=== PATIENT | male | born 1975 | race Caucasian/White ===

== ENCOUNTER 2024-04-11 09:47 | Outpatient (AMB) | payer OTHER, SELFPAY ==
--- NOTE | 2024-04-11 10:01 | A.OFFPC_ITS ---
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 Intake Note: Patient states he hasnt had a PCP for a while and hasnt been seen and just wants to get checked. 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 HPI Details New Patient? ?? Prior PCP:? No pcp x 10 yrs Last office visit/CPE:? 10 yrs Acute issue(s):? Est Care Skin lesions on head & shoulders ?? PMHx:? SurgHx:? R ing hernia repair. L skin polyp on torso. FHx:? Mom: COPD, HTN, HLD. Dad: unknown. Brother EtoH. Aunt Colon CA. 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 Smokes 1/2 ppd, EtOH 3-4 dr 3x a week. PFSH Medical History (Updated 04/11/24 @ 11:33 by Good Peterson) No pertinent past medical history Surgical History (Updated 04/11/24 @ 10:11 by CYNTHIA Ndiaye) H/O hernia repair Family History (Updated 04/11/24 @ 10:13 by CYNTHIA Ndiaye) Mother High blood pressure High cholesterol Maternal Grandmother Lung cancer Social History (Updated 04/11/24 @ 10:16 by CYNTHIA Ndiaye) Household Members: Family Caregiver staying overnight: No Housing: Apartment Are you a primary field care coordinator to a significant other at home: No Do you presently have visiting nurse or other home services: No 75 years or older and lives alone: No Alcohol intake: current Patient Tobacco Use Status: Current everyday Tobacco user Tobacco use type: Cigarette Cigarette Packs Per Day: 0.5 Cigarettes Per Day: 10 Years Smoked: 20 e-Cigarette/Vaping Use: Never Used service: No Current occupational status: employed 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 1. Little interest or pleasure in doing things: not at all 2. Feeling down, depressed, or hopeless: not at all 3. Trouble falling or staying asleep, or sleeping too much: not at all 4. Feeling tired or having little energy: not at all 5. Poor appetite or overeating: not at all 6. Feeling bad about yourself - or that you are a failure or have let yourself or your family down: not at all 7. Trouble concentrating on things, such as reading the newspaper or watching television: not at all 8. Moving or speaking so slowly that other people could have noticed. Or the opposite - being so fidgety or restless that you have been moving around a lot more than usual: not at all 9. Thoughts that you would be better off or of hurting yourself in some way: not at all Total score: 0 Depression Screening Interpretation: Negative Depression Screening Done: Yes 56079 - PHQ-9 Billing: Yes Source: Developed by Drs. Waqar Clark, Cristin Garland, Seb Carpenter and colleagues, with an educational denise from [email or web address]. Thrive Questionnaire Date Thrive assessed: 04/11/24 I am a: Patient What is your living situation today?: I have a steady place to live Within the past 12 months, did the food you bought not last and you didn't have the money to get more?: Never true Within the past 12 months, did you worry whether your food would run out before you got money to buy more?: Never true Do you have trouble paying for medicines?: No Do you have trouble getting transportation to medical appointments?: No Do you have trouble paying your heating and electricity bill?: No Do you have trouble taking care of your child, family member or friend?: No Do you have trouble with day-to-day activities such as bathing, preparing meals, shopping, managing finances, etc.?: No Are you currently unemployed and looking for a job?: No Are you interested in more education?: Yes Please select the resources that you would like help with: Education Currently or been in a relationship where the following occur: No concerns reported THRIVE Score: 0 AUDIT C Alcohol Use Questionnaire (AUDIT-C) 1. How often do you have a drink containing alcohol?: 2-3 times a week 2. How many drinks containing alcohol do you have on a typical day when you are drinking?: 3 or 4 Total Score: 4 MARIA ISABEL-7 AMB Questionnaire MARIA ISABEL-7 Date MARIA ISABEL - 7 assessed: 04/11/24 Feeling nervous, anxious, or on edge: 0 = Not at all Not being able to stop or control worryin = Not at all Worrying too much about different things: 0 = Not at all Trouble relaxin = Not at all Being so restless that it is hard to sit still: 0 = Not at all Becoming easily annoyed or irritable: 0 = Not at all Feeling afraid as if something awful might happen: 0 = Not at all Total MARIA ISABEL-7 score (0-4 normal; 5-9 mild; 10-14 moderate; 15-21 severe): 0 Source: Developed by Drs. Waqar Clark, Cristin Garland, Seb Carpenter and colleagues, with an educational denise from [email or web address]. MARIA ISABEL-7 Assessment Billing MARIA ISABEL-7 Assessment Tool: MARIA ISABEL-7 Assessment 11185 Review of Systems Const Denies chills, Denies fatigue, Denies fever(s), Denies headache(s) and Denies weakness Eyes Denies change in vision ENT Denies dizziness and Denies headache(s) Card Denies chest pain, Denies lightheadedness, Denies dyspnea and Denies other (Palpitations) Resp Denies cough, Denies dyspnea, Denies wheezing and Denies other ( shortness of breath) GI Denies abdominal pain, Denies melena, Denies hematochezia, Denies change in bowel habits, Denies dyspepsia and Denies nausea Denies hematuria and Denies dysuria Musc Denies numbness and Denies tingling Skin/Breast Denies rash, Denies unusual bruising and Denies wounds Neuro Denies dizziness, Denies headache(s), Denies numbness, Denies Sensory deficit (Neuro), Denies tingling, Denies paresthesias and Denies weakness Psych Denies anxiety and Denies depression Endo Denies fatigue Shin/Lymph Denies easy bleeding and Denies easy bruising Aller/Immun Denies wheezing Physical exam (Primary Care) Vital Signs: Last Vital Signs Temp 97.5 F 04/11/24 10:02 Pulse 88 04/11/24 10:02 Resp 15 04/11/24 10:02 BP 126/84 04/11/24 10:02 Pulse Ox 96 04/11/24 10:02 Oxygen Delivery Method Room Air 04/11/24 10:02 BMI result Body Mass Index 29.8 Tobacco/Smoking Status: Tobacco use Status Tobacco use date assessed 04/11/24 04/11/24 10:16 Patient Tobacco Use Status Current everyday Tobacco 04/11/24 10:16 Tobacco use type Cigarette 04/11/24 10:16 e-Cigarette/Vaping Use Never Used 04/11/24 10:16 PHQ-9: PHQ-9 Score PHQ-9: Total score 0 04/11/24 10:16 Depression Screening Interpretation: Negative Thrive Assessment: Date of Thrive Assessment Date Thrive assessed 04/11/24 04/11/24 10:16 Currently or been in a relationship where the following occur: No concerns reported Const General: no acute distress and well developed Nutritional Appearance: well nourished Orientation/consciousness: patient oriented x3 HENMT Head: Yes normocephalic and Yes atraumatic Ears: hearing grossly normal bilaterally and TM's normal bilaterally General nose exam: Normal external nose present and Normal nares present Mouth: Normal oral and palatal mucosa present and moist mucous membranes Teeth and gingiva: dentition normal Throat: Yes posterior oropharynx normal Eyes General: appearance normal, both eyes and all related structures Pupils: Equal, round and reactive pupils present EOM: EOMs intact bilaterally Neck Neck: Yes normal visual inspection, Yes no lymphadenopathy and Yes trachea midline Thyroid: Thyroid normal Carotids: no bruits Lymphatic: no lymphadenopathy noted Chest Chest palpation & inspection: normal inspection of the chest Resp Effort & Inspection: normal respiratory effort Auscultation: clear to auscultation bilaterally Cardio Rate: regular rate Rhythm: regular rhythm Heart sounds: S1 normal heart sound present, S2 normal heart sound present, no gallops, no murmurs and no rubs Bruits: no abdominal aortic bruits and no carotid bruits GI Palpation (GI): No Abdominal aortic bruit present, Soft to palpation, nontender, No hepatosplenomegaly present and No Rebound tenderness present Auscultation: normal bowel sounds General: Yes no CVA tenderness Back/Spine/Pelvis Back: no CVA tenderness Cervical Spine: cervical ROM normal and No Cervical spine tenderness Thoracic/Lumbar Spine: thoraco-lumbar ROM normal, No pain with thoraco-lumbar ROM, No thoracic spinal tenderness and No lumbar spinal tenderness Skin Lesions: no lesions Rashes: no rashes Trauma: no lacerations or abrasions Wounds: no wounds Nails: normal Neuro General: patient oriented x3 and gait normal Cranial nerves: Yes Equal, round and reactive pupils present Cognition (Neuro): normal cognition Gait exam (Neuro): Normal gait present Motor exam (neuro): 5/5 motor strength present throughout Sensory Exam: No Sensory deficit (Neuro) Deep tendon reflexes (DTR's): Right patellar reflex intensity grade: 2+ and Left patellar reflex intensity grade: 2+ Extrem General: Yes normal to inspection and No edema Psych Appearance: grossly normal Affect: normal affect Attitude: cooperative Thought process: Normal thought process present Assessment and Plan Assessment & Plan (1) Adult general medical exam: Code(s): Z00.00 - Encounter for general adult medical examination without abnormal findings Plan: 48-year-old?male?presents?as?new?patient?for?complete?physical?exam Exam?within?normal?limits (2) Smoker: Code(s): F17.200 - Nicotine dependence, unspecified, uncomplicated Plan: Patient?is?smoking?1/2?pack?per?day.??Strong?family?history?of?lung?cancer?and?C OPD Reviewed?options?for?smoking?cessation?and?patient?would?like?to?try?bupropion Script?sent Will?also?check?chest?x-ray (3) Neoplasm of uncertain behavior of skin: Code(s): D48.5 - Neoplasm of uncertain behavior of skin Plan: Lesion?on?forehead?and?others?on?face?and?shoulder Referred?to?dermatology (4) Screening for colon cancer: Code(s): Z12.11 - Encounter for screening for malignant neoplasm of colon Plan: 48?years?old.??Due?for?colon?cancer?screening Referred?to?Gastroenterology Orders: Orders Lipid Panel Today Z00.00 - Encounter for general adult medical examination without abnormal findings Microalbumin, Random (w Creat) Today I10 - Essential (primary) hypertension Prostate Specific Antigen Scr Today Z12.5 - Encounter for screening for malignant neoplasm of prostate TSH reflex Free T4 Today Z00.00 - Encounter for general adult medical examination without abnormal findings UA and rflx microscopic Today Z00.00 - Encounter for general adult medical examination without abnormal findings XR chest 2V Today F17.200 - Nicotine dependence, unspecified, uncomplicated Comprehensive [place]. Panel Fast Today Z00.00 - Encounter for general adult medical examination without abnormal findings Referrals Dermatology Referral D48.5 - Neoplasm of uncertain behavior of skin Gastroenterology Referral Z12.11 - Encounter for screening for malignant neoplasm of colon Medications: New bupropion HCl 75 mg PO BID 30 days 60 tabs 1RF Z12.11 - Encounter for screening for malignant neoplasm of colon Coding Level of Care Code New Pt Level 3 (75729) Diagnoses Adult general medical exam Z00.00 Smoker F17.200 Neoplasm of uncertain behavior of skin D48.5 Screening for colon cancer Z12.11 Additional Codes MARIA ISABEL-7 Assessment Billing - MARIA ISABEL-7 Assessment Tool: MARIA ISABEL-7 Assessment 03207 ([id number])
[2024-04-11 10:02] VITALS: BP 126/84; PULSE 88; RESP 15; TEMP 36.4; O2SAT 96; BMI 29.8
== END 2024-04-11 11:41 | disposition home or self-care (01) ==
PROVIDERS: PCP Family Medicine; Visit Provider Family Medicine
DX: Z00.00 Encounter for general adult medical examination without abnormal findings (principal); D48.5 Neoplasm of uncertain behavior of skin; F17.210 Nicotine dependence, cigarettes, uncomplicated; Z12.11 Encounter for screening for malignant neoplasm of colon
CPT/HCPCS: 99203; 99386

== ENCOUNTER 2024-04-20 08:55 | Outpatient (REF) | payer OTHER, SELFPAY ==
[2024-04-20 11:50] LABS: Appearance Urine Turbid; Color Urine Dark Yellow; Glucose Urine UA Negative (Negative); Leukocyte Esterase Urine Negative (Negative); Nitrite Urine Negative (Negative); PH 5.5 (5.0-9.0); Urine Blood Negative (Negative); Urine Ketones Negative (Negative); Urine Protein Negative (Neg-Trace)
[2024-04-20 12:05] LABS: Prostate Specific Antigen Scr 0.56 ng/mL (<0.05-4.0)
[2024-04-20 12:13] LABS: Alanine Aminotransferase 74 U/L (0-40); Albumin Level 4.4 g/dL (3.5-5.0); Alkaline Phosphatase 80 U/L (39-117); Anion Gap 14 (12-20); Aspartate Amino Transferase 48 U/L (5-37); Bilirubin Total 0.6 mg/dL (0.0-1.0); Blood Urea Nitrogen 8 mg/dL (9-16); Calcium 8.8 mg/dL (8.4-10.2); Carbon Dioxide 21 mmol/L (22-29); Chloride 109 mmol/L (96-108); Cholesterol 207 mg/dL (<200); Estimated Glomerular Filt Rate > 60; Glucose Fasting 90 mg/dL (60-99); HDL Cholesterol 47 mg/dL (>40); LDL Cholesterol Calculated 102 mg/dL (<100); Potassium 3.9 mmol/L (3.3-5.1); Sodium 140 mmol/L (135-145); TSH reflex Free T4 2.18 uIU/mL (0.32-4.0); Total Protein 7.1 g/dL (6.5-8.0); Triglycerides 291 mg/dL (<150)
[2024-04-20 12:17] LABS: Creatinine Urine 268.36 mg/dL; Microalbum/Creatinine Ratio Ur 6.3 ug/mg cr (<30)
== END 2024-04-20 08:56 | disposition home or self-care (01) ==
LOC: HO.WFDLDS 08:55
PROVIDERS: Visit Provider Family Medicine
DX: Z00.00 Encounter for general adult medical examination without abnormal findings (principal); I10 Essential (primary) hypertension; Z12.5 Encounter for screening for malignant neoplasm of prostate
CPT/HCPCS: 36415; 80053; 80061; 81003; 82043; 82570; 84153; 84443

== ENCOUNTER → 2024-05-04 16:01 | Outpatient (AMB) | payer OTHER, SELFPAY ==
--- NOTE | 2024-05-04 15:58 | A.OFFPC_ITS ---
Intake Visit Reasons: f/u CPE-labs via telemedicine Intake Note: follow on CPE labs Allergies No Known Allergies Allergy (Verified 05/04/24 15:59) Tobacco use date assessed: 04/11/24 Dental Screening Dental Screen Date: 04/11/24 HPI f/u CPE-labs via telemedicine HPI Details 48 y/o male presents to f/u CPE-labs via telemedicine. Labs drawn 04/20/24. Reviewed labs with pt. Elevated liver enzymes - AST 48 and ALT 78. Triglycerides 291. TC 207. LDL 102. HDL 47. PFSH Medical History (Updated 05/04/24 @ 16:32 by Good Peterson) No pertinent past medical history Surgical History (Updated 04/11/24 @ 10:11 by CYNTHIA Ndiaye) H/O hernia repair Family History (Updated 04/11/24 @ 10:13 by CYNTHIA Ndiaye) Mother High blood pressure High cholesterol Maternal Grandmother Lung cancer Social History (Updated 04/11/24 @ 10:16 by CYNTHIA Ndiaye) Household Members: Family Caregiver staying overnight: No Housing: Apartment Are you a primary family day care worker to a significant other at home: No Do you presently have visiting nurse or other home services: No 75 years or older and lives alone: No Alcohol intake: current Patient Tobacco Use Status: Current everyday Tobacco user Tobacco use type: Cigarette Cigarette Packs Per Day: 0.5 Cigarettes Per Day: 10 Years Smoked: 20 Packs Per Year: 10 Packs per year/per ci.00 e-Cigarette/Vaping Use: Never Used service: No Current occupational status: employed 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 Waqar Clark, Cristin Garland, Seb Carpenter and colleagues, with an educational denise from [employer]. Review of Systems Const Denies chills, Denies fatigue, Denies fever(s), Denies headache(s) and Denies weakness ENT Denies dizziness and Denies headache(s) Card Denies dyspnea Resp Denies cough, Denies dyspnea, Denies wheezing and Denies other (shortness of breath) Musc Denies numbness and Denies tingling Neuro Denies dizziness, Denies headache(s), Denies numbness, Denies tingling and Denies weakness Psych Denies anxiety and Denies depression Endo Denies fatigue Aller/Immun Denies wheezing Physical exam (Primary Care) Tobacco/Smoking Status: Tobacco use Status Tobacco use date assessed 04/11/24 05/04/24 16:01 Patient Tobacco Use Status Current everyday Tobacco 05/04/24 16:01 Tobacco use type Cigarette 05/04/24 16:01 e-Cigarette/Vaping Use Never Used 05/04/24 16:01 Thrive Assessment: Date of Thrive Assessment Date Thrive assessed 04/11/24 05/04/24 16:01 Const General: well developed; No acute distress Nutritional Appearance: well nourished Orientation/consciousness: patient oriented x3 HENMT Head: Yes normocephalic and Yes atraumatic Eyes General: appearance normal, both eyes and all related structures Pupils: Equal, round and reactive pupils present EOM: EOMs intact bilaterally Resp Effort & Inspection: normal respiratory effort Neuro General: patient oriented x3 and gait normal Cranial nerves: Yes Equal, round and reactive pupils present Psych Affect: normal affect Telehealth Telehealth Telehealth Platform: Telephone Location of provider rendering services: practice address Location of patient: address on file Patient Identification confirmed using: Name, : Yes Telehealth method: voice only Patient verbally consented to treatment: Yes Patient verbally consented to billing insurance company: Yes Patient informed of any privacy concerns related to visit: Yes Minutes spent on Phone/Video with Pt.: 9 Assessment and Plan Assessment & Plan (1) Elevated liver enzymes: Code(s): R74.8 - Abnormal levels of other serum enzymes Plan: Elevated?liver?enzyme Patient?notes?that?he?does?drink?alcohol?regularly He?will?work?on?weaning?this?down Hydrate?well Encouraged?weight?loss Will?repeat?liver?enzymes?in?3?months (2) Hypertriglyceridemia: Code(s): E78.1 - Pure hyperglyceridemia Plan: Mildly?elevated?cholesterol?levels?and?elevated?triglycerides Work?on?weight?loss Watch?saturated?fats?and?cholesterol Will?recheck?with?next?lab?draw (3) Screening for prostate cancer: Code(s): Z12.5 - Encounter for screening for malignant neoplasm of prostate Plan: PSA?was?within?normal?range (4) Smoker: Code(s): F17.200 - Nicotine dependence, unspecified, uncomplicated Plan: Yet?had?discussed?cessation?with?patient?at?last?visit?and?he?was?interested?in? quitting.??He?has?not?quit?yet.??Still?thinking?about?it?though. Had?ordered?bupropion?to?try?to?help?him?quit?and?he?has?not?tried?this?yet.??Di scussed?risks/benefits?again?and?patient?seems?more?inclined?to?try?it. Had?ordered?chest?x-ray?and?he?will?try?to?get?this?done We?can?follow-up?at?a?subsequent?visit Coding Level of Care Code Tele Est Pt Level 2 (07822) Diagnoses Elevated liver enzymes R74.8 Hypertriglyceridemia E78.1 Screening for prostate cancer Z12.5 Smoker F17.200
== END ==
LOC: HO.HMGFM 16:01
PROVIDERS: PCP Family Medicine; Visit Provider Family Medicine
DX: R74.8 Abnormal levels of other serum enzymes (principal); E78.1 Pure hyperglyceridemia; Z12.5 Encounter for screening for malignant neoplasm of prostate; F17.200 Nicotine dependence, unspecified, uncomplicated
CPT/HCPCS: 99212

== ENCOUNTER 2024-05-26 13:54 | Outpatient (REF) | payer OTHER, SELFPAY ==
--- NOTE | ~2024-05-26 | XR_ITS ---
EXAMINATION: XR CHEST CLINICAL INFORMATION: Nicotine dependence COMPARISON: None available. TECHNIQUE: 2 views of the chest were obtained. FINDINGS: Cardiac and mediastinal silhouette is within normal limits. There is a peribronchial thickening in the perihilar region and bilateral lower lungs. This may represent inflammatory/infectious process. No dense consolidation. No effusion, edema or pneumothorax. Thoracic spine degeneration. XR/XR chest 2V IMPRESSION: Peribronchial thickening suggestive of reactive airway disease or bronchitis. Recommendation is for a follow-up chest series to be obtained following treatment and/or resolution of symptoms to assure resolution of this appearance. Electronically signed by: Parag Devries MD 05/26/2024 05:13 PM EDT
== END 2024-05-26 13:55 | disposition home or self-care (01) ==
LOC: HO.XRAY 13:54
PROVIDERS: PCP Family Medicine; Visit Provider Family Medicine
DX: F17.200 Nicotine dependence, unspecified, uncomplicated (principal)
CPT/HCPCS: 71046

== ENCOUNTER 2024-07-31 09:09 | Outpatient (REF) | payer OTHER, SELFPAY ==
[2024-07-31 12:46] LABS: Alanine Aminotransferase 80 U/L (0-40); Albumin Level 4.6 g/dL (3.5-5.0); Alkaline Phosphatase 92 U/L (39-117); Anion Gap 15 (12-20); Aspartate Amino Transferase 60 U/L (5-37); Bilirubin Total 0.9 mg/dL (0.0-1.0); Blood Urea Nitrogen 11 mg/dL (9-16); Calcium 9.9 mg/dL (8.4-10.2); Carbon Dioxide 25 mmol/L (22-29); Chloride 105 mmol/L (96-108); Cholesterol 216 mg/dL (<200); Estimated Glomerular Filt Rate > 60; Glucose Fasting 94 mg/dL (60-99); HDL Cholesterol 49 mg/dL (>40); LDL Cholesterol Calculated 110 mg/dL (<100); Potassium 3.9 mmol/L (3.3-5.1); Sodium 141 mmol/L (135-145); Total Protein 7.5 g/dL (6.5-8.0); Triglycerides 288 mg/dL (<150)
== END 2024-07-31 09:10 | disposition home or self-care (01) ==
LOC: HO.WFDLDS 09:09
PROVIDERS: Visit Provider Family Medicine
DX: Z00.00 Encounter for general adult medical examination without abnormal findings (principal); E78.1 Pure hyperglyceridemia; R74.8 Abnormal levels of other serum enzymes
CPT/HCPCS: 36415; 80053; 80061

== ENCOUNTER 2024-08-07 09:44 | Outpatient (AMB) | payer OTHER, SELFPAY ==
--- NOTE | 2024-08-07 09:49 | A.OFFPC_ITS ---
Vital Signs 08/07/24 09:50 Height 5 ft 8 in Weight 201 lb BMI 30.6 BP 130/80 Blood Pressure Location Rt brachial Position Sitting Respiration 16 Pulse 95 Pulse Source Pulse Oximeter Temp 98.6 F Temp Source Oral Pulse Oximetry (%) 95 Oxygen Delivery Method Room Air Intake Visit Reasons: F/U elevated liver enzymes and triglycerides. Intake Note: f/u for labs Allergies No Known Allergies Allergy (Verified 08/07/24 09:49) Tobacco use date assessed: 04/11/24 Dental Screening Dental Screen Date: 04/11/24 HPI F/U elevated liver enzymes and triglycerides. HPI Details Patient is a 49-year-old male with a significant past medical history of hypertriglyceridemia, elevated LFTs, regular alcohol use and smoking presenting today for a follow up. His last labs have been stable with elevated LFTs and triglycerides. He was supposed to follow up today to review a plan for this. He tells me that when he last saw his PCP he was instructed to cut back on drinking and eat healthier. He states that he has not done this yet but wants to make some lifestyle modifications because he really does not want to take medication. He states since it is summertime he has even gained a few lb. He would like the opportunity to make more changes and does not need or want to see a extraction machine operator. He has not yet started the bupropion for smoking cessation. He states that he is getting ready to make these changes. [facility] Medical History (Updated 05/29/24 @ 22:57 by Jerman Mcallister MD) No pertinent past medical history Surgical History (Updated 04/11/24 @ 10:11 by CYNTHIA Ndiaye) H/O hernia repair Family History (Updated 04/11/24 @ 10:13 by CYNTHIA Ndiaye) Mother High blood pressure High cholesterol Maternal Grandmother Lung cancer Social History (Updated 04/11/24 @ 10:16 by CYNTHIA Ndiaye) Household Members: Family Caregiver staying overnight: No Housing: Apartment Are you a primary pet care technician to a significant other at home: No Do you presently have visiting nurse or other home services: No 75 years or older and lives alone: No Alcohol intake: current Patient Tobacco Use Status: Current everyday Tobacco user Tobacco use type: Cigarette Cigarette Packs Per Day: 0.5 Cigarettes Per Day: 10 Years Smoked: 20 e-Cigarette/Vaping Use: Never Used service: No Current occupational status: employed 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 1. Little interest or pleasure in doing things: not at all 2. Feeling down, depressed, or hopeless: not at all 3. Trouble falling or staying asleep, or sleeping too much: not at all 4. Feeling tired or having little energy: not at all 5. Poor appetite or overeating: not at all 6. Feeling bad about yourself - or that you are a failure or have let yourself or your family down: not at all 7. Trouble concentrating on things, such as reading the newspaper or watching television: not at all 8. Moving or speaking so slowly that other people could have noticed. Or the opposite - being so fidgety or restless that you have been moving around a lot more than usual: not at all 9. Thoughts that you would be better off or of hurting yourself in some way: not at all Total score: 0 Source: Developed by Drs. Waqar Clark, Cristin Garland, Seb Carpenter and colleagues, with an educational denise from [employer]. Thrive Questionnaire Date Thrive assessed: 08/04/24 I am a: Patient What is your living situation today?: I have a steady place to live Within the past 12 months, did the food you bought not last and you didn't have the money to get more?: Never true Within the past 12 months, did you worry whether your food would run out before you got money to buy more?: Never true Do you have trouble paying for medicines?: No Do you have trouble getting transportation to medical appointments?: No Do you have trouble paying your heating and electricity bill?: No Do you have trouble taking care of your child, family member or friend?: No Do you have trouble with day-to-day activities such as bathing, preparing meals, shopping, managing finances, etc.?: No Are you currently unemployed and looking for a job?: No Are you interested in more education?: No Please select the resources that you would like help with: None Currently or been in a relationship where the following occur: No concerns reported THRIVE Score: 0 MARIA ISABEL-7 AMB Questionnaire MARIA ISABEL-7 Date MARIA ISABEL - 7 assessed: 04/11/24 Source: Developed by Drs. Waqar Clark, Cristin Garland, Seb Carpenter and colleagues, with an educational denise from [employer]. Physical exam (Primary Care) Vital Signs: Last Vital Signs Temp 98.6 F 08/07/24 09:50 Pulse 95 08/07/24 09:50 Resp 16 08/07/24 09:50 BP 130/80 08/07/24 09:50 Pulse Ox 95 08/07/24 09:50 Oxygen Delivery Method Room Air 08/07/24 09:50 BMI result Body Mass Index 30.6 Tobacco/Smoking Status: Tobacco use Status Tobacco use date assessed 04/11/24 08/07/24 09:53 Patient Tobacco Use Status Current everyday Tobacco 08/07/24 09:53 Tobacco use type Cigarette 08/07/24 09:53 e-Cigarette/Vaping Use Never Used 08/07/24 09:53 PHQ-9: PHQ-9 Score PHQ-9: Total score 0 08/07/24 09:55 Thrive Assessment: Date of Thrive Assessment Date Thrive assessed 08/04/24 08/07/24 09:53 Currently or been in a relationship where the following occur: No concerns reported Const Orientation/consciousness: patient oriented x3 HENMT Ears: hearing grossly normal bilaterally Neck Thyroid: Thyroid normal Lymphatic: no lymphadenopathy noted Resp Auscultation: clear to auscultation bilaterally Cardio Rate: regular rate Rhythm: regular rhythm Heart sounds: S1 normal heart sound present and S2 normal heart sound present GI Inspection: Yes normal to inspection Palpation (GI): Soft to palpation and Other GI palpation findings present (nontender, no cva tenderness) Auscultation: normoactive bowel sounds Rectal Exam - Male: Yes deferred Skin General skin exam: no rashes or lesions noted Neuro General: patient oriented x3, gait normal and no focal motor deficits Results Reviewed Results Reviewed: Laboratory Tests 04/20/24 07/31/24 08:57 09:10 Sodium 141 Potassium 3.9 Chloride 105 Carbon Dioxide 25 Anion Gap 15 BUN 11 Creatinine 0.85 Estimated GFR > 60 Fasting Glucose 94 Calcium 9.9 D Total Bilirubin 0.9 AST 48 H 60 H ALT 74 H 80 H Triglycerides 288 H Cholesterol 216 H LDL Cholesterol, Calc 110 H HDL Cholesterol 49 Coding Level of Care Code Est Pt Level 4 (84529) Complex EM visit Add On G2211 Diagnoses Elevated liver enzymes R74.8 Hypertriglyceridemia E78.1 Assessment & Plan Assessment & Plan (1) Elevated liver enzymes: Code(s): R74.8 - Abnormal levels of other serum enzymes Category: Medical Plan: Advised that he needs to make some significant changes in cut back drinking, avoid processed foods and limit fast food and fried food. He declined seeing a extraction machine operator. He states that he is going to stop eating egg and sausage sandwich is every morning and cut back on his alcohol. He states that he has a plan of making healthy lifestyle modifications. We will recheck labs in 3-4 months. Liver ultrasound ordered. We will follow up pending test results. (2) Hypertriglyceridemia: Code(s): E78.1 - Pure hyperglyceridemia Category: Medical Plan: As above. Plan Declines flu shot today. Orders: Orders Liver Panel Today E78.1 - Pure hyperglyceridemia, R74.8 - Abnormal levels of other serum enzymes US abdomen complete Today E78.1 - Pure hyperglyceridemia, R74.8 - Abnormal levels of other serum enzymes Lipid Panel Today E78.1 - Pure hyperglyceridemia, R74.8 - Abnormal levels of other serum enzymes
[2024-08-07 09:50] VITALS: BP 130/80; PULSE 95; RESP 16; TEMP 37; O2SAT 95; BMI 30.6
== END 2024-08-07 10:04 | disposition home or self-care (01) ==
PROVIDERS: PCP Family Medicine; Visit Provider Physician Assistant
DX: R74.8 Abnormal levels of other serum enzymes (principal); E78.1 Pure hyperglyceridemia

== ENCOUNTER 2024-08-21 07:51 | Outpatient (REF) | payer OTHER, SELFPAY | END 2024-08-21 07:52 | disposition home or self-care (01) | LOC: HO.US 07:51 | PROVIDERS: PCP Family Medicine; Visit Provider Physician Assistant | DX: R74.8 Abnormal levels of other serum enzymes (principal); E78.1 Pure hyperglyceridemia | CPT/HCPCS: 76700 ==

== ENCOUNTER 2025-01-17 08:23 | Outpatient (AMB) | payer OTHER, SELFPAY ==
--- NOTE | 2025-01-17 08:25 | A.OFFVIS_ITS ---
Vital Signs 01/17/25 08:26 Height 5 ft 8 in Weight 202 lb BMI 30.7 BP 118/76 Blood Pressure Location Rt brachial Position Sitting Pulse 100 Pulse Source Pulse Oximeter Pulse Oximetry (%) 98 Oxygen Delivery Method Room Air Intake Visit Reasons: [place] scrn. R/S x1 Intake Note: NEW PATIENT for colo screening w/ hx of abn LFTs. Chief Complaint; Pt denies any GI sx or concerns at this time. Pt has hx of internal hemorrhoids + hematemesis related to severe EToH dependence. No pertinent FMHx. Loaf Counter Required: No Accompanied by: Self / Same As Patient Allergies No Known Allergies Allergy (Verified 01/17/25 08:26) HPI HPI [place] scrn. R/S x1: Details: 49 year old? male is here today for pre colonoscopy screening.? Patient was sent to us by his PCP.? His 1st colonoscopy was in his 20s for rectal bleed. Patient was diagnosed with internal hemorrhoids. Maternal aunt was diagnosed with colorectal cancer in her 30s. ? Patient denies any gastrointestinal symptoms.?? Denies history of difficulty with sedation or anesthesia in the past.? Negative for history of sleep apnea.? Denies any history of cardiac, renal, pulmonary, or hepatic disease.?? No history of infectious? diseases like hepatitis A, B, C, HIV or tuberculosis.? Patient is not on any anticoagulation [facility] Medical History No pertinent past medical history Surgical History H/O hernia repair Family History Mother High blood pressure High cholesterol Maternal Grandmother Lung cancer Social History Household Members: Family Caregiver staying overnight: No Housing: Apartment Are you a primary career development associate to a significant other at home: No Do you presently have visiting nurse or other home services: No 75 years or older and lives alone: No Alcohol intake: current Comment: 3 sleeves per week depending on when he plays golf. 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 Cognitive needs: No Hearing needs: No Vision needs: No Review of Systems Const Denies weight gain and Denies weight loss ENT Reports no additional complaints, Denies dysphagia and Denies odynophagia Card Reports no additional complaints Resp Reports no additional complaints GI Denies abdominal pain, Denies belching, Denies melena, Denies bloating, Denies change in bowel habits, Denies dysphagia, Denies excessive flatus, Denies dyspepsia, Denies heartburn, Denies diarrhea, Denies loose stools, Denies nausea, Denies odynophagia and Denies vomiting Reports no additional complaints Musc Reports no additional complaints Neuro Reports no additional complaints Psych Reports no additional complaints Endo Reports no additional complaints Physical Exam Const General: healthy appearing, no acute distress and well developed Nutritional Appearance: well nourished and obese Orientation/consciousness: patient oriented x3 Resp Effort & Inspection: normal respiratory effort, able to speak in complete sentences, no tracheal deviation and symmetric chest movement Auscultation: clear to auscultation bilaterally Cardio Rate: regular rate GI Inspection: Yes normal to inspection, No distended and Yes obesity Palpation (GI): Soft to palpation, not firm, nontender and No hepatosplenomegaly present Auscultation: normal bowel sounds General: Yes no CVA tenderness Back/Spine/Pelvis Back: no CVA tenderness Skin General skin exam: elasticity normal, turgor normal and dry skin Neuro General: patient oriented x3 Psych Appearance: grossly normal Mental Status: mental status grossly normal Assessment & Plan Assessment & Plan (1) Screening for colon cancer: Code(s): Z12.11 - Encounter for screening for malignant neoplasm of colon Category: Medical Plan Patient denies any GI, cardiac or respiratory symptoms.? Denies any issues with anesthesia in the past.? Denies any history of sleep apnea.? No history infectious diseases in the past or present.? Not on any anticoagulation therapy.? Family history of CRC.? Patient denies melena, hematochezia, unintentional weight loss or ribbon like stools.? Discussed at length the pre- procedure,? prep, diet & medications as well as what to expect prior, during and after the procedure.?? Stressed the importance of good bowel prep.? Recommended the use of Vaseline or Calmoseptine OTC & baby wipes with bowel movements to promote comfort.? ?Patient verbalizes understanding and agrees to plan of care.? He was given the opportunity to ask questions and all questions answered.? We will see him after the procedure.? Medications: New polyethylene glycol 3350 (Miralax) As directed by gastroenterology department at [facility] 238 grams PO ONCE 238 grams 0RF Z12.11 - Encounter for screening for malignant neoplasm of colon bisacodyl (Dulcolax (bisacodyl)) take 4 tabs at noon the day before your colonoscopy 20 mg (4 x 5 mg) PO ONCE 1 day 4 tabs 0RF constipation Z12.11 - Encounter for screening for malignant neoplasm of colon Coding Level of Care Code New Pt Level 3 (80632) Diagnoses Screening for colon cancer Z12.11 Time Spent (min) 40 Comment 30 minutes spent with patient and additional 10 minutes spent reviewing her records
[2025-01-17 08:26] VITALS: BP 118/76; PULSE 100; O2SAT 98; BMI 30.7
== END 2025-01-17 09:00 | disposition home or self-care (01) ==
LOC: HO.HGI 08:24
PROVIDERS: PCP Family Medicine; Visit Provider Nurse Practitioner Family
DX: Z01.818 Encounter for other preprocedural examination (principal); Z12.11 Encounter for screening for malignant neoplasm of colon; Z80.0 Family history of malignant neoplasm of digestive organs
CPT/HCPCS: 99202

== ENCOUNTER 2025-02-05 08:25 | Outpatient (AMB) | payer OTHER, SELFPAY ==
--- NOTE | 2025-02-05 08:38 | MHC.PC.OV ---
Vital Signs 02/05/25 08:39 02/05/25 08:43 Height 5 ft 8 in Weight 203 lb 6 oz BMI 30.9 BP 140/80 H 132/78 Blood Pressure Location Rt brachial Rt brachial Position Sitting Sitting Respiration 14 Pulse 95 Pulse Source Pulse Oximeter Temp 97.9 F Temp Source Oral Pulse Oximetry (%) 96 Oxygen Delivery Method Room Air Intake Visit Reasons: pcp f/u labs Intake Note: patient is scheduled for follow up lab review Remote Broadcast Technician Required: No Allergies No Known Allergies Allergy (Verified 02/05/25 08:38) Medication List - Last Reconciled 02/05/25 by Jerman Mcallister MD bisacodyl (Dulcolax (bisacodyl)) 20 mg (4 x 5 mg) PO ONCE 1 day polyethylene glycol 3350 (Miralax) 238 grams PO ONCE varenicline tartrate PO PER PKG DIR Tobacco use date assessed: 04/11/24 Dental Screening Dental Screen Date: 04/11/24 HPI pcp f/u labs HPI Details 49 y/o male presents to f/u labs. Labs drawn 07/31/24. Reviewed labs with pt. Triglycerides 288. TC 216. LDL 110. HDL 49. AST 60, ALT 80. Abdomen ultrasound 08/21/24 showed increased echogeniccity of liver parenchyma. Seen in the setting of hepatic steatosis or liver parenchymal disease. He reports ongoing smoking. Chest x-ray 05/26/24: Peribronchial thickening suggestive of reactive airway disease or bronchitis. Recommendation is for a follow-up chest series to be obtained following treatment and/or resolution of symptoms to assure resolution of this appearance. [facility] Medical History No pertinent past medical history Surgical History H/O hernia repair Family History Mother High blood pressure High cholesterol Maternal Grandmother Lung cancer Social History Household Members: Family Caregiver staying overnight: No Housing: Apartment Are you a primary child care team lead to a significant other at home: No Do you presently have visiting nurse or other home services: No 75 years or older and lives alone: No Alcohol intake: current Comment: 3 sleeves per week depending on when he plays golf. Patient Tobacco Use Status: Current everyday Tobacco user Tobacco use type: Cigarette Cigarette Packs Per Day: 0.5 Cigarettes Per Day: 10 Years Smoked: 20 e-Cigarette/Vaping Use: Never Used service: No Current occupational status: employed Current occupation: [employer] Department Cognitive needs: No Hearing needs: No Vision needs: No Questionnaire PHQ-9 Over the last 2 weeks, how often have you been bothered by any of the following problems? 1. Little interest or pleasure in doing things: not at all 2. Feeling down, depressed, or hopeless: not at all 3. Trouble falling or staying asleep, or sleeping too much: not at all 4. Feeling tired or having little energy: not at all 5. Poor appetite or overeating: not at all 6. Feeling bad about yourself - or that you are a failure or have let yourself or your family down: not at all 7. Trouble concentrating on things, such as reading the newspaper or watching television: not at all 8. Moving or speaking so slowly that other people could have noticed. Or the opposite - being so fidgety or restless that you have been moving around a lot more than usual: not at all 9. Thoughts that you would be better off or of hurting yourself in some way: not at all Total score: 0 Depression Screening Interpretation: Negative Depression Screening Done: Yes 47046 - PHQ-9 Billing: Yes Source: Developed by Drs. Waqar Clark, Cristin Garland, Seb Carpenter and colleagues, with an educational denise from [employer]. Thrive Questionnaire Date Thrive assessed: 02/02/25 I am a: Patient What is your living situation today?: I have a steady place to live Within the past 12 months, did the food you bought not last and you didn't have the money to get more?: Never true Within the past 12 months, did you worry whether your food would run out before you got money to buy more?: Never true Do you have trouble paying for medicines?: No Do you have trouble getting transportation to medical appointments?: No Do you have trouble paying your heating and electricity bill?: No Do you have trouble taking care of your child, family member or friend?: No Do you have trouble with day-to-day activities such as bathing, preparing meals, shopping, managing finances, etc.?: No Are you currently unemployed and looking for a job?: No Are you interested in more education?: No Please select the resources that you would like help with: None Currently or been in a relationship where the following occur: No concerns reported THRIVE Score: 0 AUDIT C Alcohol Use Questionnaire (AUDIT-C) 2. How many drinks containing alcohol do you have on a typical day when you are drinking?: 5 or 6 Total Score: 2 MARIA ISABEL-7 AMB Questionnaire MARIA ISABEL-7 Date MARIA ISABEL - 7 assessed: 02/05/25 Feeling nervous, anxious, or on edge: 0 = Not at all Not being able to stop or control worryin = Not at all Worrying too much about different things: 0 = Not at all Trouble relaxin = Not at all Being so restless that it is hard to sit still: 0 = Not at all Becoming easily annoyed or irritable: 0 = Not at all Feeling afraid as if something awful might happen: 0 = Not at all Total MARIA ISABEL-7 score (0-4 normal; 5-9 mild; 10-14 moderate; 15-21 severe): 0 Source: Developed by Drs. Waqar Clark, Cristin Garland, Seb Carpenter and colleagues, with an educational denise from [employer]. MARIA ISABEL-7 Assessment Billing MARIA ISABEL-7 Assessment Tool: MARIA ISABEL-7 Assessment 99737 Review of Systems Const Denies chills, Denies fatigue, Denies fever(s), Denies headache(s) and Denies weakness ENT Denies dizziness and Denies headache(s) Card Denies dyspnea Resp Denies cough, Denies dyspnea, Denies wheezing and Denies other (shortness of breath) Musc Denies numbness and Denies tingling Neuro Denies dizziness, Denies headache(s), Denies numbness, Denies tingling and Denies weakness Psych Denies anxiety and Denies depression Endo Denies fatigue Aller/Immun Denies wheezing Physical exam (Primary Care) Vital Signs: Last Vital Signs Temp 97.9 F 02/05/25 08:39 Pulse 95 02/05/25 08:39 Resp 14 02/05/25 08:39 BP 132/78 02/05/25 08:43 Pulse Ox 96 02/05/25 08:39 Oxygen Delivery Method Room Air 02/05/25 08:39 BMI result Body Mass Index 30.9 Tobacco/Smoking Status: Tobacco use Status Tobacco use date assessed 04/11/24 02/05/25 08:43 Patient Tobacco Use Status Current everyday Tobacco 02/05/25 08:43 Tobacco use type Cigarette 02/05/25 08:43 e-Cigarette/Vaping Use Never Used 02/05/25 08:43 PHQ-9: PHQ-9 Score PHQ-9: Total score 0 02/05/25 08:50 Depression Screening Interpretation: Negative Thrive Assessment: Date of Thrive Assessment Date Thrive assessed 02/02/25 02/05/25 08:43 Currently or been in a relationship where the following occur: No concerns reported Const General: well developed; No acute distress Nutritional Appearance: well nourished Orientation/consciousness: patient oriented x3 HENMT Head: Yes normocephalic and Yes atraumatic Eyes General: appearance normal, both eyes and all related structures Pupils: Equal, round and reactive pupils present EOM: EOMs intact bilaterally Resp Effort & Inspection: normal respiratory effort Auscultation: clear to auscultation bilaterally Cardio Rate: regular rate Rhythm: regular rhythm Heart sounds: S1 normal heart sound present, S2 normal heart sound present, no gallops, no murmurs and no rubs Neuro General: patient oriented x3 and gait normal Cranial nerves: Yes Equal, round and reactive pupils present Psych Affect: normal affect Coding Level of Care Code Est Pt Level 4 (75477) Diagnoses Elevated liver enzymes R74.8 Hyperlipidemia E78.5 Smoker F17.200 Abnormal chest x-ray R93.89 Screening for colon cancer Z12.11 Additional Codes MARIA ISABEL-7 Assessment Billing - MARIA ISABEL-7 Assessment Tool: MARIA ISABEL-7 Assessment 94651 ([id number]) PHQ-9 - 46117 - PHQ-9 Billing: Yes ([id number]) Assessment & Plan Assessment & Plan (1) Elevated liver enzymes: Code(s): R74.8 - Abnormal levels of other serum enzymes Category: Medical Plan: Elevated?liver?enzymes. Ultrasound?suggests?hepatic?steatosis Encouraged?weight?loss,?good?hydration?and?decrease any?Tylenol?and?alcohol?use. Will?recheck?liver?enzymes?and?follow?with?patient (2) Hyperlipidemia: Code(s): E78.5 - Hyperlipidemia, unspecified Category: Medical Plan: LDL?cholesterol?is?above?goal?of?less?than?100 Encouraged?weight?loss Will?recheck?lipids (3) Smoker: Code(s): F17.200 - Nicotine dependence, unspecified, uncomplicated Category: Social Hx Plan: Patient?briefly?tried?bupropion.??Still?smoking?about?half?pack?per?day Will?try?Chantix (4) Abnormal chest x-ray: Code(s): R93.89 - Abnormal findings on diagnostic imaging of other specified body structures Category: Medical Plan: Had?ordered?repeat?chest?x-ray He?will?get?this?done?when?he?gets?his?labs?drawn (5) Screening for colon cancer: Code(s): Z12.11 - Encounter for screening for malignant neoplasm of colon Category: Medical Plan: Patient?has?been?seen?by?Gastroenterology?wants?but?has?not?had?colonoscopy?yet. Gave?him?gastroenterology?number?to?help?close?the?loop?and?get?colonoscopy?scheduled. Orders: Orders Complete Blood Count Auto Diff Today Z00.00 - Encounter for general adult medical examination without abnormal findings Prostate Specific Antigen Scr Today Z12.5 - Encounter for screening for malignant neoplasm of prostate UA CC w/rflx Micro + Cult Today Z00.00 - Encounter for general adult medical examination without abnormal findings XR chest 2V Today R93.89 - Abnormal findings on diagnostic imaging of other specified body structures Comprehensive [place]. Panel Fast Today Z00.00 - Encounter for general adult medical examination without abnormal findings Lipid Panel Today Z00.00 - Encounter for general adult medical examination without abnormal findings Microalbumin, Random (w Creat) Today I10 - Essential (primary) hypertension TSH reflex Free T4 Today Z00.00 - Encounter for general adult medical examination without abnormal findings Medications: New varenicline tartrate PO PER PKG DIR 53 ea 0RF
[2025-02-05 08:39] VITALS: BP 140/80; PULSE 95; RESP 14; TEMP 36.6; O2SAT 96; BMI 30.9
[2025-02-05 08:43] VITALS: BP 132/78
== END 2025-02-05 09:13 | disposition home or self-care (01) ==
LOC: HO.HMCFM 08:26
PROVIDERS: PCP Family Medicine; Visit Provider Family Medicine
DX: R74.8 Abnormal levels of other serum enzymes (principal); E78.5 Hyperlipidemia, unspecified; F17.200 Nicotine dependence, unspecified, uncomplicated; R93.89 Abnormal findings on diagnostic imaging of other specified body structures; Z12.11 Encounter for screening for malignant neoplasm of colon

== ENCOUNTER → 2025-02-05 08:25 | Outpatient (BNVA) | payer OTHER, SELFPAY | PROVIDERS: PCP Family Medicine; Visit Provider Family Medicine | DX: R74.8 Abnormal levels of other serum enzymes (principal); E78.5 Hyperlipidemia, unspecified; R93.89 Abnormal findings on diagnostic imaging of other specified body structures; F17.210 Nicotine dependence, cigarettes, uncomplicated | CPT/HCPCS: 96127 ==

== ENCOUNTER 2025-02-16 10:23 | Outpatient (REF) | payer OTHER, SELFPAY ==
[2025-02-16 14:25] LABS: Basophils Absolute Auto 0.1 X10*3/uL (0.0-0.2); Basophils Percent Auto 0.9 % (0-2); Eosinophils Absolute Auto 0.3 X10*3/uL (0.0-0.4); Eosinophils Percent Auto 4.4 % (0-4); Hematocrit 47.9 % (42.0-52.0); Hemoglobin 16.6 g/dl (14.0-18.0); Imm Gran Abs Auto 0.05 X10*3/uL (0.00-0.03); Imm Gran Pct Auto 0.7 % (0.0-0.4); Lymphocytes Absolute Auto 1.8 X10*3/uL (1.2-4.9); Lymphocytes Percent Auto 26.4 % (20-40); MANUAL DIFF FLAG SCAN; Mean Corpuscular HGB Conc 34.7 g/dl (31.0-36.0); Mean Corpuscular Hemoglobin 32.7 pg (27.0-33.0); Mean Corpuscular Volume 94.3 fL (80.0-98.0); Mean Platelet Volume 10.7 fL (9.4-12.4); Monocytes Absolute Auto 0.5 X10*3/uL (0.1-1.2); Monocytes Percent Auto 7.5 % (2-11); Neutrophils Absolute Auto 4.1 x10*3/uL (2.0-8.3); Neutrophils Percent Auto 60.1 % (45-73); Platelet Count 255 X10*3/uL (160-400); Red Blood Count 5.08 X10*6/uL (4.60-5.80); Red Cell Distribution Width 12.8 % (11.0-16.0); SCAN SMEAR FLAG 1; White Blood Count 6.8 X10*3/uL (4.8-10.8)
[2025-02-16 14:32] LABS: Appearance Urine Clear; Color Urine Dark Yellow; Glucose Urine UA Negative (Negative); Leukocyte Esterase Urine Negative (Negative); Nitrite Urine Negative (Negative); PH 5.5 (5.0-9.0); Specific Gravity - Urine 1.025 (1.005-1.025); Urine Blood Negative (Negative); Urine Ketones Trace mg/dL (Negative); Urine Protein Negative (Neg-Trace)
[2025-02-16 14:55] LABS: Prostate Specific Antigen Scr 0.67 ng/mL (<0.05-4.0)
[2025-02-16 14:57] LABS: Alanine Aminotransferase 76 U/L (0-40); Albumin Level 4.6 g/dL (3.5-5.0); Alkaline Phosphatase 89 U/L (39-117); Anion Gap 11 (12-20); Aspartate Amino Transferase 45 U/L (5-37); Bilirubin Direct 0.3 mg/dL (0.0-0.5); Bilirubin Total 0.8 mg/dL (0.0-1.0); Blood Urea Nitrogen 10 mg/dL (9-16); Calcium 9.6 mg/dL (8.4-10.2); Carbon Dioxide 25 mmol/L (22-29); Chloride 108 mmol/L (96-108); Cholesterol 211 mg/dL (<200); Estimated Glomerular Filt Rate > 60; Glucose Fasting 103 mg/dL (60-99); HDL Cholesterol 42 mg/dL (>40); LDL Cholesterol Calculated 132 mg/dL (<100); Potassium 3.9 mmol/L (3.3-5.1); Sodium 140 mmol/L (135-145); TSH reflex Free T4 3.06 uIU/mL (0.32-4.0); Total Protein 7.5 g/dL (6.5-8.0); Triglycerides 185 mg/dL (<150)
[2025-02-16 15:02] LABS: SLIDE REVIEW VERIFIED
[2025-02-16 15:27] LABS: Creatinine Urine 328.47 mg/dL; Microalbum/Creatinine Ratio Ur 6.3 ug/mg cr (<30)
== END 2025-02-16 10:24 | disposition home or self-care (01) ==
LOC: HO.WFDLDS 10:23
PROVIDERS: Visit Provider Family Medicine
DX: Z00.00 Encounter for general adult medical examination without abnormal findings (principal); R74.8 Abnormal levels of other serum enzymes; I10 Essential (primary) hypertension; Z12.5 Encounter for screening for malignant neoplasm of prostate; E78.1 Pure hyperglyceridemia
CPT/HCPCS: 36415; 80053; 80061; 80076; 81003; 82043; 82248; 82570; 84153; 84443; 85025

== ENCOUNTER 2025-02-21 10:00 | Outpatient (AMB) | payer OTHER, SELFPAY ==
--- NOTE | 2025-02-21 10:12 | MHC.PC.OV ---
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 Labs drawn 02/16/25. Reviewed labs with pt. Triglycerides 185. TC 211. LDL 132. HDL 42. Elevated liver enzymes - AST 45, ALT 76. Elevated fasting glucose of 103. PFSH Medical History No pertinent past medical history Surgical History H/O hernia repair Family History Mother High blood pressure High cholesterol Maternal Grandmother Lung cancer Social History Household Members: Family Housing: Apartment Are you a primary career guidance counselor to a significant other at home: No Do you presently have visiting nurse or other home services: No Alcohol intake: current Comment: 3 sleeves per week depending on when he plays golf. 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 Waqar Clark, Cristin Garland, Seb Carpenter and colleagues, with an educational denise from [employer]. Review of Systems Const Denies chills, Denies fatigue, Denies fever(s), Denies headache(s) and Denies weakness ENT Denies dizziness and Denies headache(s) Card Denies dyspnea Resp Denies cough, Denies dyspnea, Denies wheezing and Denies other (shortness of breath) Musc Denies numbness and Denies tingling Neuro Denies dizziness, Denies headache(s), Denies numbness, Denies tingling and Denies weakness Psych Denies anxiety and Denies depression Endo Denies fatigue Aller/Immun Denies wheezing Physical exam (Primary Care) Tobacco/Smoking Status: Tobacco use Status Tobacco use date assessed 04/11/24 02/21/25 10:13 Patient Tobacco Use Status Current everyday Tobacco 02/21/25 10:13 Tobacco use type Cigarette 02/21/25 10:13 e-Cigarette/Vaping Use Never Used 02/21/25 10:13 Thrive Assessment: Date of Thrive Assessment Date Thrive assessed 02/02/25 02/21/25 10:13 Telehealth Telehealth Telehealth Platform: Telephone Location of provider rendering services: practice address Location of patient: address on file Patient Identification confirmed using: Name, : Yes Telehealth method: voice only Patient verbally consented to treatment: Yes Patient verbally consented to billing insurance company: Yes Patient informed of any privacy concerns related to visit: Yes Minutes spent on Phone/Video with Pt.: 6 Coding Level of Care Code Tele Est Pt Level 2 (61065) Diagnoses Hyperlipidemia E78.5 Smoker F17.200 Elevated fasting glucose R73.01 Elevated liver enzymes R74.8 Assessment & Plan Assessment & Plan (1) Hyperlipidemia: Code(s): E78.5 - Hyperlipidemia, unspecified Category: Medical Plan: LDL?cholesterol?has?risen?again Will?start?atorvastatin?20?mg?daily Work?at?a?diet?lower?in?saturated?fats?and?cholesterol Encouraged?exercise?and?weight?loss Will?recheck?in?2?months (2) Smoker: Code(s): F17.200 - Nicotine dependence, unspecified, uncomplicated Category: Social Hx Plan: Encouraged?smoking?cessation Had?sent?a?script?for?Chantix?any?plans ?to?start?this?tomorrow. (3) Elevated fasting glucose: Code(s): R73.01 - Impaired fasting glucose Category: Medical Plan: Mildly?elevated?fasting?blood?sugar Will?check?an?A1c?with?his?next?blood?draw Encouraged?a?diet?lower?in?sugars?and?starches.??Encouraged?exercise?and?weight?loss (4) Elevated liver enzymes: Code(s): R74.8 - Abnormal levels of other serum enzymes Category: Medical Plan: Liver?enzymes?are?still?elevated?though?decreased?from?prior?lab?work Encouraged?weight?loss?in?good?hydration Prior?ultrasound?showed?hepatic?steatosis Will?continue?to?monitor Orders: Orders Lipid Panel Today E78.5 - Hyperlipidemia, unspecified, Z00.00 - Encounter for general adult medical examination without abnormal findings Comprehensive [place]fant. Panel Fast Today E78.5 - Hyperlipidemia, unspecified, Z00.00 - Encounter for general adult medical examination without abnormal findings Hemoglobin A1c Today E78.5 - Hyperlipidemia, unspecified, R73.01 - Impaired fasting glucose Medications: New atorvastatin 20 mg PO BEDTIME 90 tabs 3RF 90 days
== END 2025-02-21 17:05 | disposition home or self-care (01) ==
LOC: HO.HMCFM 10:00
PROVIDERS: PCP Family Medicine; Visit Provider Family Medicine
DX: E78.5 Hyperlipidemia, unspecified (principal); F17.200 Nicotine dependence, unspecified, uncomplicated; R73.01 Impaired fasting glucose; R74.8 Abnormal levels of other serum enzymes

== ENCOUNTER → 2025-02-21 10:00 | Outpatient (BNVA) | payer OTHER, SELFPAY | PROVIDERS: PCP Family Medicine; Visit Provider Family Medicine | DX: Z13.89 Encounter for screening for other disorder (principal) ==

== ENCOUNTER 2025-03-21 07:24 | Day surgery (SDC) | payer OTHER, SELFPAY ==
[2025-03-19 14:43] VITALS: BMI 30.7
--- NOTE | 2025-03-20 11:47 | HO.ANESPROP2 ---
Documented by User: Caro Christensen NP 03/20/25 11:47 HPI - Anesthesia Eval Consult details Narrative: 49yo M for Colonoscopy PMFSH Active Problems Active Problems: All Active Problems Elevated fasting glucose (Acute) Hyperlipidemia (Acute) Abnormal chest x-ray (Acute) Screening for prostate cancer (Acute) Hypertriglyceridemia (Acute) Elevated liver enzymes (Acute) Screening for colon cancer (Acute) Adult general medical exam (Acute) Smoker (Acute) Neoplasm of uncertain behavior of skin (Acute) Laboratory exam ordered as part of routine general medical examination (Acute) Past Medical History Medical History Hyperlipemia Family History Family History Mother High blood pressure High cholesterol Maternal Grandmother Lung cancer Surgical History Surgical History H/O hernia repair Social History Social History Household Members: Family Housing: Apartment Are you a primary ocular care technician to a significant other at home: No Do you presently have visiting nurse or other home services: No Alcohol intake: current Alcohol intake frequency: 3 or more drinks per day Comment: 3 sleeves per week depending on when he plays golf. Patient Tobacco Use Status: Current everyday Tobacco user Tobacco use type: Cigarette Cigarette Packs Per Day: 0.5 Cigarettes Per Day: 2 Years Smoked: 20 e-Cigarette/Vaping Use: Never Used Use of substances other than those prescribed or required for medical reasons: Yes Substance Use Frequency: Weekly Have you been hit, kicked, punched, or otherwise hurt by someone within the past year? 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 Cognitive needs: No Hearing needs: No Vision needs: No Meds Allergies Allergy/AdvReac Type Severity Reaction Status Date / Time No Known Allergies Allergy Verified 03/21/25 07:44 Exam Height,Weight and Vital Signs: Height 5 ft 8 in Weight 91.626 kg Assessment and Plan Assessment Anesthesia Assessment: Chart Reviewed Documented by User: Brendon Encinas MD 03/21/25 08:19 PMFSH Past Medical History Medical History Hyperlipemia Family History Family History Mother High blood pressure High cholesterol Maternal Grandmother Lung cancer Surgical History Surgical History H/O hernia repair History of Problems with Anesthesia: No Social History Social History Household Members: Family Housing: Apartment Are you a primary ocular care technician to a significant other at home: No Do you presently have visiting nurse or other home services: No Alcohol intake: current Alcohol intake frequency: 3 or more drinks per day Comment: 3 sleeves per week depending on when he plays golf. Patient Tobacco Use Status: Current everyday Tobacco user Tobacco use type: Cigarette Cigarette Packs Per Day: 0.5 Cigarettes Per Day: 2 Years Smoked: 20 e-Cigarette/Vaping Use: Never Used Use of substances other than those prescribed or required for medical reasons: Yes Substance Use Frequency: Weekly Have you been hit, kicked, punched, or otherwise hurt by someone within the past year? 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 Cognitive needs: No Hearing needs: No Vision needs: No Meds Allergies Allergy/AdvReac Type Severity Reaction Status Date / Time No Known Allergies Allergy Verified 03/21/25 07:44 Exam Airway Loose/Missing/Broken Teeth: No Assessment and Plan Final Anesthetic Review History of Problems with Anesthesia: No Patient Risk: Low Documented by User: Ayesha Karimi MD 03/21/25 08:16 [facility] Past Medical History Medical History Hyperlipemia Family History Family History Mother High blood pressure High cholesterol Maternal Grandmother Lung cancer Family history of problems with anesthesia: No Surgical History Surgical History H/O hernia repair Social History Social History Household Members: Family Housing: Apartment Are you a primary ocular care technician to a significant other at home: No Do you presently have visiting nurse or other home services: No Alcohol intake: current Alcohol intake frequency: 3 or more drinks per day Comment: 3 sleeves per week depending on when he plays golf. Patient Tobacco Use Status: Current everyday Tobacco user Tobacco use type: Cigarette Cigarette Packs Per Day: 0.5 Cigarettes Per Day: 2 Years Smoked: 20 e-Cigarette/Vaping Use: Never Used Use of substances other than those prescribed or required for medical reasons: Yes Substance Use Frequency: Weekly Have you been hit, kicked, punched, or otherwise hurt by someone within the past year? 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 Cognitive needs: No Hearing needs: No Vision needs: No Meds Allergies Allergy/AdvReac Type Severity Reaction Status Date / Time No Known Allergies Allergy Verified 03/21/25 07:44 Exam Airway Mallampati Class: II TM Dist: >3cm Neck ROM: Full Heart: rrr Lungs: cta Assessment and Plan Assessment Anesthesia Assessment: Anesthesia Plan Discussed Final Anesthetic Review Family History of Problems with Anesthesia: No NPO: Yes ASA Class: III Final Preanesthetic Review: No Changes in Pt Med Stat, Meds/Allgs Chart Reviewed, Consent Obtained/Reviewed and Anes Risks/Benef Reviewed Patient Risk: Intermediate Procedure Risk: Low Anesthetic Plan Anesthetic Plan: MAC: and Agree w/ Assess. and Plan Disposition: Standard PACU
[2025-03-21 07:45] VITALS: BP 142/96; PULSE 90; RESP 14; TEMP 36.7; O2SAT 95; BMI 28.8
[2025-03-21] MEDS: Lactated Ringers 1,000 ML 100 ML IVCONT (07:57)
--- NOTE | 2025-03-21 08:37 | MHC.SHP ---
Pre-Procedural Eval Section A - 24 Hr Update-Section A only Date of Service: 03/21/25 Section B - Complete if H&P > 30 days Chief Complaint: screening Relevant Family History (Specify if Yes): No Relevant Social History: Tobacco Use Present Medications: see Short Stay Collaborative assessment Medical History: Significant History (Hyperlipemia) History of Previous Operations: Relevant previous surgery/procedure and date(s) (H/O hernia repair, EGd, colo) Allergies: Allergies Allergy/AdvReac Type Severity Reaction Status Date / Time No Known Allergies Allergy Verified 03/21/25 07:44 Review of Systems Sugical H&P ROS: Negative: Constitution, Cardiovascular, Respiratory, Neurological, Psychiatric, Hem-Onc, Allergic/Immunologic, Gastrointestinal, Genitourinary, Musculoskeletal, Integumentary, Endocrine and Eyes/Ears/Nose/Throat Exam Surgical H&P Exam: Normal: HEENT, Normal: Heart, Normal: Lungs, Normal: Extremities, Normal: Abdomen, Normal: Skin and Normal: Neurological Plan Diagnosis/Plan: Unchanged I have reviewed the history and physical and performed a pertinent physical examination on my patient. No changes have occurred unless specified. Time Spent With Patient Time: Total time managing care of this patient today ____ minutes.
--- NOTE | 2025-03-21 08:54 | HO.OPN-COLON ---
Colonoscopy Operative Note Operative Note Date of Service: 03/21/25 Narrative: Operative Information Procedure Description: Colonoscopy Indication: screening Anesthesia: MAC COLONOSCOPY Instrument: Olympus variable stiffness pediatric scope 190L Colonoscopy Monitoring: Vital signs and clinical assessment, continuous EKG monitoring, Pulse oximetry, Carbon Dioxide monitoring and blood pressure monitoring were done throughout the procedure. Colon withdrawal time was 9 minutes. Procedure: The patient was placed in the left lateral decubitis position and pre-procedure medications were administered. After a digital rectal examination of the ano-rectum, the video colonoscope was inserted into the rectum and advanced through the colon to the cecum/TI. The colonoscope was slowly withdrawn in a retrograde panoramic fashion and the colon mucosa was carefully examined including a retroflexed view of the rectum. Findings and interventions are described below. Procedure Difficulty: easy Findings: Terminal Ileum-normal Cecum:normal right sided retroflexion- nml Ascending Colon: normal Transverse Colon -normal Descending Colon:normal Sigmoid Colon: mild diverticulosis Rectum: Retroflexion with small internal hemorrhoids seen, grade I, 5-6 mm sessile polyp removed with cold forceps Anorectum - normal Intervention: cold forceps Colon preparation: [place] Bowel Preparation Scale Right colon; 2 Transverse colon: 2 Left colon; 2 (0 = Unprepared colon segment with mucosa not seen due to solid stool that cannot be cleared. 1 = Portion of mucosa of the colon segment seen, but other areas of the colon segment not well seen due to staining, residual stool and/or opaque liquid. 2 = Minor amount of residual staining, small fragments of stool and/or opaque liquid, but mucosa of colon segment seen well. 3 = Entire mucosa of colon segment seen well with no residual staining, small fragments of stool or opaque liquid) Impression and Post Procedure Diagnosis: diverticulosis colon polyp x 1 internal hemorrhoids Plan: High fiber diet leaflet Avoid straining at stool, epsom salts and sitz bath, anusol supps or cream Repeat Colonoscopy in 5 years if adenomatous, 10 yrs if hyperplastic or earlier if clinically indicated Above findings were reviewed with the patient and relevant handouts were provided if indicated.
[2025-03-21 09:01] VITALS: BP 114/69; PULSE 79; RESP 20; TEMP 35; O2SAT 95
[2025-03-21 09:16] VITALS: BP 124/87; PULSE 79; RESP 20; TEMP 36.3; O2SAT 94
== END 2025-03-21 09:48 | disposition home or self-care (01) ==
PROVIDERS: PCP Family Medicine; Visit Provider Internal Medicine Gastroenterology
PROC: 0DJD8ZZ Inspection of Lower Intestinal Tract, Via Natural or Artificial Opening Endoscopic (ICD-10-PCS; CPT 45378; principal; 2025-03-21 08:30)
DX: Z12.11 Encounter for screening for malignant neoplasm of colon (principal); K62.1 Rectal polyp; K57.30 Diverticulosis of large intestine without perforation or abscess without bleeding; K64.0 First degree hemorrhoids; E78.5 Hyperlipidemia, unspecified; F17.210 Nicotine dependence, cigarettes, uncomplicated
CPT/HCPCS: 45380; 88305; J2003; J2704

== ENCOUNTER → 2025-03-21 07:24 | Outpatient (BNV) | payer OTHER, SELFPAY | PROVIDERS: PCP Family Medicine; Visit Provider Internal Medicine Gastroenterology | DX: Z12.11 Encounter for screening for malignant neoplasm of colon (principal); D12.8 Benign neoplasm of rectum; K57.30 Diverticulosis of large intestine without perforation or abscess without bleeding; K64.0 First degree hemorrhoids | CPT/HCPCS: 45380 ==

== ENCOUNTER 2025-04-23 06:53 | Outpatient (REF) | payer OTHER, SELFPAY ==
--- NOTE | ~2025-04-23 | XR_ITS ---
EXAMINATION: XR CHEST CLINICAL INFORMATION: R93.89 - Abnormal findings on diagnostic imaging of other specified body... COMPARISON: 05/26/2024 TECHNIQUE: 2 views of the chest were obtained. FINDINGS: The cardiac, hilar, and mediastinal contours are normal. The lungs are clear bilaterally. There is no pneumothorax or pleural effusion. There is no focal osseous or soft tissue abnormality. XR/XR chest 2V IMPRESSION: Normal chest. Electronically signed by: Gabino Peña MD 04/23/2025 08:24 AM EDT
[2025-04-23 08:29] LABS: Appearance Urine Clear; Glucose Urine UA Negative (Negative); PH 5.5 (5.0-9.0); Specific Gravity - Urine 1.025 (1.005-1.025)
[2025-04-23 08:51] LABS: Hemoglobin A1C 140.6154 umol/L; Total Hemoglobin (HGBA1C) 3906.2906 umol/L
[2025-04-23 08:53] LABS: Alanine Aminotransferase 55 U/L (0-40); Albumin Level 4.5 g/dL (3.5-5.0); Alkaline Phosphatase 85 U/L (39-117); Anion Gap 12 (12-20); Aspartate Amino Transferase 40 U/L (5-37); Blood Urea Nitrogen 11 mg/dL (9-16); Calcium 8.9 mg/dL (8.4-10.2); Carbon Dioxide 24 mmol/L (22-29); Chloride 109 mmol/L (96-108); Cholesterol 194 mg/dL (<200); Estimated Glomerular Filt Rate > 60; HDL Cholesterol 44 mg/dL (>40); Potassium 3.8 mmol/L (3.3-5.1); Sodium 141 mmol/L (135-145); Total Protein 7.1 g/dL (6.5-8.0); Triglycerides 294 mg/dL (<150)
[2025-04-23 09:09] LABS: Microalbum/Creatinine Ratio Ur 5.4 ug/mg cr (<30)
== END 2025-04-23 06:54 | disposition home or self-care (01) ==
LOC: HO.XRAY 06:53
PROVIDERS: PCP Family Medicine; Visit Provider Family Medicine
DX: Z00.00 Encounter for general adult medical examination without abnormal findings (principal); Z12.5 Encounter for screening for malignant neoplasm of prostate; R93.89 Abnormal findings on diagnostic imaging of other specified body structures; I10 Essential (primary) hypertension; R73.01 Impaired fasting glucose; E78.5 Hyperlipidemia, unspecified
CPT/HCPCS: 36415; 71046; 80053; 80061; 81003; 82043; 82570; 83036; 84153; 84443

== ENCOUNTER → 2025-04-23 06:57 | Outpatient (BNV) | payer OTHER, SELFPAY | PROVIDERS: PCP Family Medicine; Visit Provider Radiology Diagnostic Radiology | DX: R07.9 Chest pain, unspecified (principal) | CPT/HCPCS: 71046 ==

== ENCOUNTER 2025-04-24 14:01 | Outpatient (AMB) | payer OTHER, SELFPAY ==
--- NOTE | 2025-04-24 14:06 | A.OFFPC_ITS ---
Vital Signs 04/24/25 14:17 Height 5 ft 8 in Weight 199 lb 8 oz BMI 30.3 BP 130/70 Blood Pressure Location Rt brachial Position Sitting Respiration 16 Pulse 75 Pulse Source Pulse Oximeter Temp 98.6 F Temp Source Oral Pulse Oximetry (%) 97 Oxygen Delivery Method Room Air Intake Visit Reasons: Dr. Waller stated a 15 physical appt is okay Intake Note: patient is scheduled for physical exam Coding Coordinator Required: No Allergies No Known Allergies Allergy (Verified 04/24/25 14:13) Tobacco use date assessed: 04/24/25 Dental Screening Dental Screen Date: 04/24/25 Did you have a dental visit in the last 12 months?: Yes Did you have a dental problem in the last 6 months where you did not have access to dental care?: No Was dental information given to patient?: Patient has dentist HPI Dr. Waller stated a 15 physical appt is okay HPI Details 49 y/o male presents for a CPE with f/u labs and health maint. Labs drawn 04/23/25. Reviewed labs with pt. A1c 5.4%. Fasting glucose 101. Elevated liver enzymes - AST 40, ALT 55. Triglycerides 294. TC 194. LDL 92. HDL 44. PSA 0.77. TSH 3.24. PFSH Medical History Hyperlipemia Surgical History H/O hernia repair Family History Mother High blood pressure High cholesterol Maternal Grandmother Lung cancer Social History Household Members: Family Caregiver staying overnight: No Housing: Apartment Are you a primary med care manager to a significant other at home: No Do you presently have visiting nurse or other home services: No 75 years or older and lives alone: No Alcohol intake: current Alcohol intake frequency: 3 or more drinks per day Comment: 3 sleeves per week depending on when he plays golf. Patient Tobacco Use Status: Current everyday Tobacco user Tobacco use type: Cigarette Cigarette Packs Per Day: 0.5 Cigarettes Per Day: 2 Years Smoked: 20 e-Cigarette/Vaping Use: Never Used service: No Current occupational status: employed Current occupation: [employer] Department Cognitive needs: No Hearing needs: No Vision needs: No Questionnaire PHQ-9 Over the last 2 weeks, how often have you been bothered by any of the following problems? 1. Little interest or pleasure in doing things: not at all 2. Feeling down, depressed, or hopeless: not at all 3. Trouble falling or staying asleep, or sleeping too much: not at all 4. Feeling tired or having little energy: not at all 5. Poor appetite or overeating: not at all 6. Feeling bad about yourself - or that you are a failure or have let yourself or your family down: not at all 7. Trouble concentrating on things, such as reading the newspaper or watching television: not at all 8. Moving or speaking so slowly that other people could have noticed. Or the opposite - being so fidgety or restless that you have been moving around a lot more than usual: not at all 9. Thoughts that you would be better off or of hurting yourself in some way: not at all Total score: 0 Depression Screening Interpretation: Negative Depression Screening Done: Yes 44561 - PHQ-9 Billing: Yes Source: Developed by Drs. Waqar Clark, Cristin Garland, Seb Carpenter and colleagues, with an educational denise from [employer]. Thrive Questionnaire Date Thrive assessed: 02/02/25 I am a: Patient What is your living situation today?: I have a steady place to live Within the past 12 months, did the food you bought not last and you didn't have the money to get more?: Never true Within the past 12 months, did you worry whether your food would run out before you got money to buy more?: Never true Do you have trouble paying for medicines?: No Do you have trouble getting transportation to medical appointments?: No Do you have trouble paying your heating and electricity bill?: No Do you have trouble taking care of your child, family member or friend?: No Do you have trouble with day-to-day activities such as bathing, preparing meals, shopping, managing finances, etc.?: No Are you currently unemployed and looking for a job?: No Are you interested in more education?: No Please select the resources that you would like help with: None Currently or been in a relationship where the following occur: No concerns reported THRIVE Score: 0 MARIA ISABEL-7 AMB Questionnaire MARIA ISABEL-7 Date MARIA ISABEL - 7 assessed: 04/24/25 Feeling nervous, anxious, or on edge: 0 = Not at all Not being able to stop or control worryin = Not at all Worrying too much about different things: 0 = Not at all Trouble relaxin = Not at all Being so restless that it is hard to sit still: 0 = Not at all Becoming easily annoyed or irritable: 0 = Not at all Feeling afraid as if something awful might happen: 0 = Not at all Total MARIA ISABEL-7 score (0-4 normal; 5-9 mild; 10-14 moderate; 15-21 severe): 0 Source: Developed by Drs. Waqar Clark, Cristin Garland, Seb Carpenter and colleagues, with an educational denise from [employer]. MARIA ISABEL-7 Assessment Billing MARIA ISABEL-7 Assessment Tool: MARIA ISABEL-7 Assessment 02921 Review of Systems Const Denies chills, Denies fatigue, Denies fever(s), Denies headache(s) and Denies weakness Eyes Denies change in vision ENT Denies dizziness, Denies headache(s), Denies hearing loss, Denies nasal congestion, Denies sinus pain, Denies sinus pressure and Denies sore throat Card Denies chest pain, Denies lightheadedness, Denies dyspnea and Denies other (palpitations) Resp Denies cough, Denies dyspnea and Denies wheezing GI Denies abdominal pain, Denies melena, Denies hematochezia, Denies change in bowel habits, Denies dyspepsia and Denies nausea Denies hematuria and Denies dysuria Musc Denies abnormal gait, Denies myalgias, Denies arthralgias, Denies numbness and Denies tingling Skin/Breast Denies rash, Denies unusual bruising and Denies wounds Neuro Denies abnormal gait, Denies dizziness, Denies headache(s), Denies memory loss, Denies numbness, Denies Sensory deficit (Neuro), Denies tingling and Denies weakness Psych Denies anxiety, Denies depression and Denies memory loss Endo Denies cold intolerance, Denies fatigue, Denies heat intolerance, Denies polydipsia and Denies polyuria Shin/Lymph Denies easy bleeding and Denies easy bruising Aller/Immun Denies wheezing Physical exam (Primary Care) Vital Signs: Last Vital Signs Temp 98.6 F 04/24/25 14:17 Pulse 75 04/24/25 14:17 Resp 16 04/24/25 14:17 BP 130/70 04/24/25 14:17 Pulse Ox 97 04/24/25 14:17 Oxygen Delivery Method Room Air 04/24/25 14:17 BMI result Body Mass Index 30.3 Tobacco/Smoking Status: Tobacco use Status Tobacco use date assessed 04/24/25 04/24/25 14:20 Patient Tobacco Use Status Current everyday Tobacco 04/24/25 14:08 Tobacco use type Cigarette 04/24/25 14:08 e-Cigarette/Vaping Use Never Used 04/24/25 14:08 PHQ-9: PHQ-9 Score PHQ-9: Total score 0 04/24/25 14:22 Depression Screening Interpretation: Negative Thrive Assessment: Date of Thrive Assessment Date Thrive assessed 02/02/25 04/24/25 14:08 Currently or been in a relationship where the following occur: No concerns reported Const General: no acute distress, well developed, alert and awake Nutritional Appearance: well nourished Orientation/consciousness: patient oriented x3 HENMT Head: Yes normocephalic and Yes atraumatic Ears: hearing grossly normal bilaterally and TM's normal bilaterally General nose exam: Normal external nose present and Normal nares present Mouth: Normal oral and palatal mucosa present and moist mucous membranes Teeth and gingiva: dentition normal Throat: Yes posterior oropharynx normal Eyes General: appearance normal, both eyes and all related structures Pupils: Equal, round and reactive pupils present and Pupil accommodation reflex normal EOM: EOMs intact bilaterally Neck Neck: Yes normal visual inspection, Yes no lymphadenopathy and Yes trachea midline Thyroid: Thyroid normal Carotids: no bruits Lymphatic: no lymphadenopathy noted Chest Chest palpation & inspection: normal inspection of the chest Resp Effort & Inspection: normal respiratory effort Auscultation: clear to auscultation bilaterally Cardio Rate: regular rate Rhythm: regular rhythm Heart sounds: S1 normal heart sound present, S2 normal heart sound present, no gallops, no murmurs and no rubs Bruits: no abdominal aortic bruits and no carotid bruits GI Palpation (GI): No Abdominal aortic bruit present, Soft to palpation, nontender, No hepatosplenomegaly present and No Rebound tenderness present Auscultation: normal bowel sounds General: Yes no CVA tenderness Back/Spine/Pelvis Back: no CVA tenderness Cervical Spine: cervical ROM normal and No Cervical spine tenderness Thoracic/Lumbar Spine: thoraco-lumbar ROM normal, No pain with thoraco-lumbar ROM, No thoracic spinal tenderness and No lumbar spinal tenderness Skin Lesions: no lesions Rashes: no rashes Trauma: no lacerations or abrasions Wounds: no wounds Nails: normal Neuro General: patient oriented x3 Cranial nerves: Yes Equal, round and reactive pupils present Cognition (Neuro): normal cognition Gait exam (Neuro): Normal gait present Motor exam (neuro): 5/5 motor strength present throughout Sensory Exam: No Sensory deficit (Neuro) Deep tendon reflexes (DTR's): Right patellar reflex intensity grade: 2+ and Left patellar reflex intensity grade: 2+ Extrem General: Yes normal to inspection and No edema Psych Appearance: grossly normal Affect: normal affect Attitude: cooperative Thought process: Normal thought process present Coding Level of Care Code Est Pt Level 3 (61770) Est Pt Prev Care 40-64y(14896) Diagnoses Adult general medical exam Z00.00 Elevated liver enzymes R74.8 Elevated fasting glucose R73.01 Alcohol use F10.90 Hyperlipidemia E78.5 Smoker F17.200 Screening for colon cancer Z12.11 Screening for prostate cancer Z12.5 Plantar fasciitis M72.2 Additional Codes MARIA ISABEL-7 Assessment Billing - MARIA ISABEL-7 Assessment Tool: MARIA ISABEL-7 Assessment [id number] ([id number]) PHQ-9 - 74368 - PHQ-9 Billing: Yes ([id number]) Assessment & Plan Assessment & Plan (1) Adult general medical exam: Code(s): Z00.00 - Encounter for general adult medical examination without abnormal findings Category: Medical Plan: 49-year-old male presents for complete physical exam Encouraged healthy diet with active lifestyle and plenty of exercise (2) Elevated liver enzymes: Code(s): R74.8 - Abnormal levels of other serum enzymes Category: Medical Plan: Ongoing elevated liver enzymes though slightly improved from prior Patient confides that he had been drinking much more than he initially alluded to He does say that he has been decreasing this but is still drinking a significant amount of alcohol on a fairly regular basis no maybe not every day. Encouraged him to continue weaning down alcohol Increase hydration Work on weight loss We will continue to monitor (3) Elevated fasting glucose: Code(s): R73.01 - Impaired fasting glucose Category: Medical Plan: A1c 5.4% is still in normal range Encouraged weight loss and healthy diet (4) Alcohol use: Code(s): F10.90 - Alcohol use, unspecified, uncomplicated Category: Social Hx Plan: He says that he has been decreasing this but is still drinking a significant amount of alcohol on a fairly regular basis no maybe not every day Encouraged weaning and cessation (5) Hyperlipidemia: Code(s): E78.5 - Hyperlipidemia, unspecified Category: Medical Plan: LDL cholesterol much improved with atorvastatin. He notes that he has not been very consistent with the medication but he does seem to be quite responsive to it. Encouraged him to work on consistency with the medication (6) Smoker: Code(s): F17.200 - Nicotine dependence, unspecified, uncomplicated Category: Social Hx Plan: Patient had weaned down smoking with Chantix. No longer taking Chantix and he has started increasing smoking again though not yet at baseline Had also sent him a script for bupropion which he still has. He says he will try this (7) Screening for colon cancer: Code(s): Z12.11 - Encounter for screening for malignant neoplasm of colon Category: Medical Plan: Recent colonoscopy with [facility] gastroenterology They recommended follow-up in 10 years Up-to-date (8) Screening for prostate cancer: Code(s): Z12.5 - Encounter for screening for malignant neoplasm of prostate Category: Medical Plan: PSA was within normal range Will continue annual screening (9) Plantar fasciitis: Code(s): M72.2 - Plantar fascial fibromatosis Category: Medical Plan: Demonstrated stretches and recommended NSAIDs and ice He will let me know if not improving and we could consider referral to Podiatry if needed.
[2025-04-24 14:17] VITALS: BP 130/70; PULSE 75; RESP 16; TEMP 37; O2SAT 97; BMI 30.3
== END 2025-04-24 14:48 | disposition home or self-care (01) ==
LOC: HO.HMCFM 14:02
PROVIDERS: PCP Family Medicine; Visit Provider Family Medicine
DX: Z00.00 Encounter for general adult medical examination without abnormal findings (principal); R74.8 Abnormal levels of other serum enzymes; R73.01 Impaired fasting glucose; F10.90 Alcohol use, unspecified, uncomplicated; E78.5 Hyperlipidemia, unspecified; F17.200 Nicotine dependence, unspecified, uncomplicated; Z12.11 Encounter for screening for malignant neoplasm of colon; Z12.5 Encounter for screening for malignant neoplasm of prostate; M72.2 Plantar fascial fibromatosis

== ENCOUNTER → 2025-04-24 14:01 | Outpatient (BNVA) | payer OTHER, SELFPAY | PROVIDERS: PCP Family Medicine; Visit Provider Family Medicine | DX: Z00.00 Encounter for general adult medical examination without abnormal findings (principal); R74.8 Abnormal levels of other serum enzymes; R73.01 Impaired fasting glucose; F10.90 Alcohol use, unspecified, uncomplicated; E78.5 Hyperlipidemia, unspecified; M72.2 Plantar fascial fibromatosis; F17.210 Nicotine dependence, cigarettes, uncomplicated; Z13.31 Encounter for screening for depression; Z13.39 Encounter for screening examination for other mental health and behavioral disorders | CPT/HCPCS: 96127 ==